=== PATIENT | female | born 1995 | race Caucasian/White ===

== ENCOUNTER 2019-10-22 16:04 | Outpatient (CLI) | payer OTHER, SELFPAY ==
--- NOTE | 2019-10-22 16:30 | USCV_ITS ---
Karely Dubon Age: 24 Gender: F : 1995 Exam Date: 10/22/2019 16:09 Ordering Phys: Miguel Matamoros MD ([email or web address]) Technologist: Sayra Mcgee Exam Location: [facility] Indication: /ARRYTHMIA BP: / HR: 97 Rhythm: Sinus Technical Quality: Adequate MEASUREMENTS (Male / Female) Normal Values 2D ECHO LV Diastolic Diameter PLAX 3.3 cm 4.2 - 5.9 / 3.9 - 5.3 cm LV Systolic Diameter PLAX 2.5 cm LV Chamber Size 3.1 cm IVS Diastolic Thickness 0.8 cm 0.6 - 1.0 / 0.6 - 0.9 cm IVS Systolic Thickness 0.9 cm LVPW Diastolic Thickness 1.0 cm 0.6 - 1.0 / 0.6 - 0.9 cm LVPW Systolic Thickness 0.9 cm RV Chamber Size 2.7 cm LVOT Diameter 2.0 cm LV Ejection Fraction 2D Teich 52.7 % LV Ejection Fraction MOD 2C 37.6 % LV Ejection Fraction 2C AL 36.3 % LA Diameter 2.1 cm LA Width 2.1 cm LA Height 2.5 cm RA Width 2.5 cm RA Height 2.6 cm Aorta at Sinotubular Diameter 2.3 cm M-MODE LV Diastolic Diameter MM 3.9 cm 4.2 - 5.9 / 3.9 - 5.3 cm LV Systolic Diameter MM 2.5 cm LV Ejection Fraction MM Teich 67.9 % IVS Diastolic Thickness MM 0.7 cm 0.6 - 1.0 / 0.6 - 0.9 cm IVS Systolic Thickness MM 1.1 cm LVPW Diastolic Thickness MM 0.8 cm 0.6 - 1.0 / 0.6 - 0.9 cm LVPW Systolic Thickness MM 1.0 cm RV Diastolic Diameter MM 1.1 cm Aortic Annulus Diameter 2.3 cm LA Ao Ratio MM 0.9 MV E Point Septal Separation 0.5 cm DOPPLER AV Peak Velocity 129.0 cm/s LVOT Peak Velocity 77.0 cm/s AV Area Cont Eq vti 2.0 cm squared AV Area Cont Eq pk 1.9 cm squared MV Area PHT 8.5 cm squared Mitral E to A Ratio 1.3 MV E' Velocity 95.0 cm/s Mitral E to LV E' Septal Ratio 8.8 TR Peak Velocity 167.1 cm/s TR Peak Gradient 11.2 mmHg TR Mean Velocity 135.0 cm/s TR Mean Gradient 7.6 mmHg TR Velocity Time Integral 40.5 cm TV Peak E Velocity 70.0 cm/s Right Atrial Pressure 3.0 mmHg Pulmonary Artery Systolic Pressu 14.2 mmHg PV Peak Velocity 77.0 cm/s QpQs Shunt Ratio 1.5 RV Acceleration Time 0.1 s RV Ejection Time 0.3 s RV AcT/ET 0.4 FINDINGS Left Ventricle Normal left ventricular cavity size. Normal left ventricular systolic function. No regional wall motion abnormalities. Left ventricular ejection fraction is estimated at 60 %. No regional wall motion abnormalities. Right Ventricle The right ventricle is normal in size and function. Right Atrium The right atrium is normal in size. Left Atrium The left atrium is normal in size. Mitral Valve Mildly thickened mitral valve. No mitral valve stenosis. Trace mitral valve regurgitation. Aortic Valve Structurally normal trileaflet aortic valve. No aortic valve stenosis. No aortic valve regurgitation. Tricuspid Valve Mild tricuspid valve regurgitation. Pulmonic Valve Structurally normal pulmonic valve without significant stenosis. There is no pulmonic regurgitation. Pericardium Normal pericardium without effusion. Aorta Normal ascending aorta dimension. CONCLUSIONS 1-Normal left ventricular cavity size. Normal left ventricular systolic function. No regional wall motion abnormalities. Left ventricular ejection fraction is estimated at 60 %. No regional wall motion abnormalities. 2-There is no pericardial effusion. 3-No significant valve abnormalities. 4-Pulmonary artery systolic pressure is within normal limits. 5-Right atrial pressure is around 5 mm of mercury. 6-There are no prior echocardiogram studies to compare. Miguel Matamoros MD (Electronically Signed) Final Date: 24 Oct 2019 17:15 S
== END 2019-10-22 16:05 | disposition home or self-care (01) ==
LOC: RAD 16:08
PROVIDERS: Visit Provider Internal Medicine Cardiovascular Disease
DX: I49.9 Cardiac arrhythmia, unspecified (principal)
CPT/HCPCS: 93306

== ENCOUNTER → 2019-10-30 16:19 | Outpatient (BNVA) | payer OTHER, SELFPAY | PROVIDERS: Visit Provider Nurse Practitioner Women's Health | DX: O09.899 Supervision of other high risk pregnancies, unspecified trimester (principal); Z3A.19 19 weeks gestation of pregnancy; R00.0 Tachycardia, unspecified | CPT/HCPCS: 80053; 80307; 84315; 85027; 86592; 86762; 86803; 86850; 86900; 87340; 87806 ==

== ENCOUNTER → 2019-11-14 11:12 | Outpatient (BNVA) | payer OTHER, SELFPAY | PROVIDERS: Visit Provider Obstetrics & Gynecology | DX: O99.340 Other mental disorders complicating pregnancy, unspecified trimester (principal); O99.321 Drug use complicating pregnancy, first trimester; Z3A.00 Weeks of gestation of pregnancy not specified | CPT/HCPCS: 80307; 84315 ==

== ENCOUNTER → 2019-11-15 08:15 | Outpatient (BNVA) | payer OTHER, SELFPAY | PROVIDERS: Visit Provider Obstetrics & Gynecology | DX: O99.340 Other mental disorders complicating pregnancy, unspecified trimester (principal); O09.892 Supervision of other high risk pregnancies, second trimester; O99.342 Other mental disorders complicating pregnancy, second trimester; O99.322 Drug use complicating pregnancy, second trimester; R63.6 Underweight; R00.0 Tachycardia, unspecified; O99.321 Drug use complicating pregnancy, first trimester; R82.5 Elevated urine levels of drugs, medicaments and biological substances; Z3A.00 Weeks of gestation of pregnancy not specified | CPT/HCPCS: 80307; 80349 ==

== ENCOUNTER → 2019-11-27 15:20 | Outpatient (BNVA) | payer OTHER, SELFPAY | PROVIDERS: Visit Provider Nurse Practitioner Women's Health | DX: O09.892 Supervision of other high risk pregnancies, second trimester (principal); O99.322 Drug use complicating pregnancy, second trimester; Z3A.00 Weeks of gestation of pregnancy not specified | CPT/HCPCS: 80307; 84315; 87491; 87591; 87661; 88175 ==

== ENCOUNTER → 2019-12-09 13:11 | Outpatient (BNVA) | payer OTHER, SELFPAY | PROVIDERS: Visit Provider Obstetrics & Gynecology | DX: Z34.92 Encounter for supervision of normal pregnancy, unspecified, second trimester (principal); Z3A.19 19 weeks gestation of pregnancy | CPT/HCPCS: 76805 ==

== ENCOUNTER → 2020-01-27 16:20 | Outpatient (BNVA) | payer OTHER, SELFPAY | PROVIDERS: Referring Provider Dermatology; Visit Provider Dermatology | DX: L81.8 Other specified disorders of pigmentation (principal); D22.9 Melanocytic nevi, unspecified | CPT/HCPCS: 99203 ==

== ENCOUNTER → 2020-02-11 10:25 | Outpatient (BNVA) | payer OTHER, SELFPAY | PROVIDERS: Visit Provider Nurse Practitioner Women's Health | DX: O09.892 Supervision of other high risk pregnancies, second trimester (principal); O99.322 Drug use complicating pregnancy, second trimester; R00.0 Tachycardia, unspecified; R63.6 Underweight; O99.342 Other mental disorders complicating pregnancy, second trimester; O47.9 False labor, unspecified | CPT/HCPCS: 80307; 82950; 83986; 84315; 85027 ==

== ENCOUNTER → 2020-02-19 08:10 | Outpatient (BNVA) | payer OTHER, SELFPAY | PROVIDERS: Visit Provider Obstetrics & Gynecology | DX: O99.019 Anemia complicating pregnancy, unspecified trimester (principal); R73.09 Other abnormal glucose | CPT/HCPCS: 82728; 82951; 82952; 83036; 83550 ==

== ENCOUNTER → 2020-03-05 13:07 | Outpatient (BNVA) | payer OTHER, SELFPAY | PROVIDERS: Visit Provider Obstetrics & Gynecology | DX: O99.013 Anemia complicating pregnancy, third trimester (principal) | CPT/HCPCS: 84315; 85027 ==

== ENCOUNTER 2020-03-13 08:56 | Outpatient (CLI) | payer OTHER, SELFPAY ==
[2020-03-13 11:06] LABS: Basophils % 0.1 %; Hematocrit 33.4 % (37.0-47.0); Hemoglobin 10.7 g/dL (11.5-15.3); Lymphocytes # 1.1 10^3/uL (0.8-4.8); Lymphocytes % 15.8 %; Mean Corpuscular Hemoglobin 31.5 pg (28.0-34.0); Mean Corpuscular Volume 98.2 fL (81-99); Mean Platelet Volume 9.9 fL (7.4-10.4); Monocytes # 0.4 10^3/uL (0.2-0.9); Monocytes % 5.5 %; Neutrophils # 5.61 10^3/uL (1.8-7.7); Neutrophils % 77.6 %; Nucleated Red Blood Cells % 0 %; Platelet Count 217 10^3/cmm (130-400); Red Cell Distribution Width 12.9 % (12.1-15.1); White Blood Count 7.2 10^3/uL (4.0-10.0)
[2020-03-13 11:49] LABS: Ferritin 35 ng/mL (15-150); Iron 128 ug/dL (37-145); Total Iron Binding Capacity 473 mcg/dl; Unsaturated Iron Binding 345 ug/dL (112-347)
[2020-03-13 11:54] LABS: Folate Level > 20.0 ng/mL (4.8-37.3)
[2020-03-13 12:06] LABS: Vitamin B12 250 pg/mL (232-1245)
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
== END 2020-03-13 08:57 | disposition home or self-care (01) ==
PROVIDERS: Referring Provider Internal Medicine Critical Care Medicine; Visit Provider Internal Medicine Medical Oncology
DX: O99.013 Anemia complicating pregnancy, third trimester (principal); D50.9 Iron deficiency anemia, unspecified; O26.893 Other specified pregnancy related conditions, third trimester; Z3A.00 Weeks of gestation of pregnancy not specified; R00.0 Tachycardia, unspecified; K21.9 Gastro-esophageal reflux disease without esophagitis; O99.340 Other mental disorders complicating pregnancy, unspecified trimester; F41.8 Other specified anxiety disorders; J68.9 Unspecified respiratory condition due to chemicals, gases, fumes and vapors; U07.0 Vaping-related disorder
CPT/HCPCS: 82607; 82728; 82746; 83540; 83550; 85025; 99204

== ENCOUNTER 2020-03-26 10:20 | Outpatient (CLI) | payer OTHER, SELFPAY ==
[2020-03-26 11:01] LABS: Basophils % 0.3 %; Hematocrit 31.4 % (37.0-47.0); Hemoglobin 10.3 g/dL (11.5-15.3); Lymphocytes # 1.2 10^3/uL (0.8-4.8); Lymphocytes % 16.1 %; Mean Corpuscular HGB Conc 32.8 g/dL (30.0-36.0); Mean Corpuscular Hemoglobin 31.7 pg (28.0-34.0); Mean Corpuscular Volume 96.6 fL (81-99); Mean Platelet Volume 9.8 fL (7.4-10.4); Monocytes # 0.5 10^3/uL (0.2-0.9); Monocytes % 6.5 %; Neutrophils # 5.72 10^3/uL (1.8-7.7); Neutrophils % 75.6 %; Nucleated Red Blood Cells % 0 %; Platelet Count 235 10^3/cmm (130-400); Red Blood Count 3.25 10^6/uL (4.1-5.3); Red Cell Distribution Width 12.9 % (12.1-15.1); White Blood Count 7.6 10^3/uL (4.0-10.0)
[2020-03-26 11:17] LABS: Ferritin 27 ng/mL (15-150); Homocysteine 7.57; Iron 85 ug/dL (37-145); Percent Saturation 17.5 % (20-50); Total Iron Binding Capacity 484 mcg/dl; Unsaturated Iron Binding 399 ug/dL (112-347)
--- NOTE | 2020-03-26 14:52 | ONC FU_ITS ---
Gaurav Zhu Patient Note Patient: Karely Dubon Unit #: [id number]: 1995 Dictated By: Joseph ChristopherDate of Visit: Mar 26, 2020 Onc MED TELEPHONE CONVERSATION Chief Complaint: IRON DEFICIENCY I spoke with Ms. Dubon today after reviewing her labs from earlier this morning. Her white count 7.6, hemoglobin 10.3, platelets 235,000 her iron saturation 17.5% which is down from 27% on March 13, 2020. Her ferritin is 27 down from 35 and her iron level is 85 down from 128 on March 13, 2020. She is currently taking iron 3 times a day orally. She states that she has. She states she is worn out, tired short of breath and is having significant cravings for water. She is also in her third with an estimated delivery date around 04/27/2020. I have requested that we go ahead and pursue Injectafer 2 doses for her given the fact that her hemoglobin is dropping and her iron sat has dropped 10 points in 2 weeks. She is not absorbing the oral iron. It is anticipated that she will discontinue to drop in her hemoglobin and iron saturation. I would like to pursue the Injectafer before she becomes any more symptomatic. We are planning to give her Injectafer tomorrow. She has no questions or concerns at this time. Signed By: Joseph Christopher-, CARO CENTERLeon Emmanuel MD <<Signature on File>>
[2020-03-31 17:08] LABS: Methylmalonic Acid 239 nmol/L (87-318)
== END 2020-03-26 10:21 | disposition home or self-care (01) ==
LOC: ONCMED 10:51
PROVIDERS: Visit Provider Nurse Practitioner
DX: D50.8 Other iron deficiency anemias (principal)
CPT/HCPCS: 36415; 82728; 83090; 83540; 83550; 83921; 85025

== ENCOUNTER 2020-03-27 09:43 | Outpatient (CLI) | payer OTHER, SELFPAY ==
[2020-03-27] MEDS: ferric carboxy (IVPB) 750 MG in sodium chloride 0.9% (100 ml) 100 ML 460 MG IV (10:41)
== END 2020-03-27 09:44 | disposition home or self-care (01) ==
LOC: ONCMED 09:47
PROVIDERS: Visit Provider Nurse Practitioner
DX: D50.8 Other iron deficiency anemias (principal)
CPT/HCPCS: 96365; J1439

== ENCOUNTER → 2020-04-01 11:06 | Outpatient (BNVA) | payer OTHER, SELFPAY | PROVIDERS: Visit Provider Obstetrics & Gynecology | DX: O09.893 Supervision of other high risk pregnancies, third trimester (principal) | CPT/HCPCS: 84315; 87081 ==

== ENCOUNTER 2020-04-03 05:56 | Outpatient (CLI) | payer OTHER, SELFPAY ==
[2020-04-03] MEDS: ferric carboxy (IVPB) 750 MG in sodium chloride 0.9% (100 ml) 100 ML 460 MG IV (10:15)
== END 2020-04-03 05:57 | disposition home or self-care (01) ==
LOC: ONCMED 05:56
PROVIDERS: Visit Provider Internal Medicine Medical Oncology
DX: D50.9 Iron deficiency anemia, unspecified (principal)
CPT/HCPCS: 96365; J1439

== ENCOUNTER → 2020-04-09 13:31 | Outpatient (BNVA) | payer OTHER, SELFPAY | PROVIDERS: Visit Provider Obstetrics & Gynecology | DX: O09.893 Supervision of other high risk pregnancies, third trimester (principal); O99.322 Drug use complicating pregnancy, second trimester; Z34.90 Encounter for supervision of normal pregnancy, unspecified, unspecified trimester | CPT/HCPCS: 80307; 84315 ==

== ENCOUNTER 2020-04-16 03:00 | Inpatient (IN) | payer OTHER, SELFPAY ==
[2020-04-16] VITALS (37 sets, daily range): BP systolic 0–137; BP diastolic 0–83; PULSE 64–122; RESP 16–18; TEMP 36.4–36.9; O2SAT 96–100
--- NOTE | 2020-04-16 02:38 | ECG_ITS ---
[facility] Test Date: 2020-04-16 Pat Name: Karely Dubon Department: Room: LDR 3 Gender: Female Payroll Services Analyst: : 1995 Requested By: Tim Paez Order Number: [id number] Price MD: TIFFANIE BALDERAS Measurements Intervals [place] Rate: 60 P: 14 MO: 138 QRS: 11 QRSD: 90 T: 39 QT: 389 QTc: 390 Interpretive Statements SINUS RHYTHM INTERPRETATION BASED ON A DEFAULT AGE OF 40 YEARS No previous ECG available for comparison Electronically Signed On 04-16-2020 21:04:51 CDT by TIFFANIE BALDERAS [id number]
[2020-04-16 03:12] LABS: Basophils % 0.2 %; Hematocrit 36.1 % (37.0-47.0); Hemoglobin 11.8 g/dL (11.5-15.3); Lymphocytes # 1.7 10^3/uL (0.8-4.8); Lymphocytes % 18.8 %; Mean Corpuscular HGB Conc 32.7 g/dL (30.0-36.0); Mean Corpuscular Hemoglobin 32.2 pg (28.0-34.0); Mean Corpuscular Volume 98.4 fL (81-99); Mean Platelet Volume 10.4 fL (7.4-10.4); Monocytes # 0.6 10^3/uL (0.2-0.9); Monocytes % 6.4 %; Neutrophils # 6.71 10^3/uL (1.8-7.7); Nucleated Red Blood Cells % 0 %; Platelet Count 227 10^3/cmm (130-400); Red Blood Count 3.67 10^6/uL (4.1-5.3); Red Cell Distribution Width 13.8 % (12.1-15.1); White Blood Count 9.2 10^3/uL (4.0-10.0)
[2020-04-16] MEDS: ondansetron 2 mg/ML SDV 2 mL 4 MG IVP (03:16)
[2020-04-16] MEDS: lactated ringers 1,000 ML 999 ML IV (03:16)
[2020-04-16 03:26] LABS: Amphetamines Screen Urine Negative (Negative); Barbiturates Screen Urine Negative (Negative); Benzodiazepines Screen Urine Negative (Negative); Cocaine Screen Urine Negative (Negative); Opiate Screen Urine Negative (Negative); PCP Screen Urine Negative (Negative); THC Screen Urine Positive (Negative)
[2020-04-16] MEDS: oxytocin 30 UNIT/500 ML BAG 600 UNIT IV (03:47)
--- NOTE | 2020-04-16 03:52 | PM.DELIVERY ---
Delivery Note: Date of delivery: April 16, 2020 Pre-delivery diagnoses: Term . maternal tachycardia. Anemia Affecting . underweight. Intrauterine growth restriction. Drug use in . Post-delivery diagnoses: as above term delivered Procedure: spontaneous vaginal delivery Op report anesthesia: None Delivering Physician: Tim Lowe M.D. Estimated blood loss (mL): 300 Findings: baby girl, 88 weight 2880 g Pre-Delivery Course: 24 year old, 4, Para 2-0-1-2 with LMP of 11/06/2019 and an MAU of 04/27/2020 based on 15 week ultrasound, placing her at 38 3/7 weeks today. Who has been receiving care from [facility]. She has been experiencing painful uterine contractions for the past 4 hours. The contractions are occurring at 4 minute intervals with approximately 30 second duration. She continues to feel movement between the contractions. She denied vaginal bleeding but refers 0100 she rupture of membranes with meconium. She arrived to labor and delivery with cervical dilation of 5-6 cm, 95% effacement at 0 station. She was noticed to have late decelerations. Intrauterine resuscitation was started immediately. She progressed very fast to have a spontaneous vaginal delivery. She arrived to labor and delivery at 0202 and delivered the at 333. CC: Onset of labor at term. HPI: Received appropriate care. Daily vitamins since started care. labs have all been normal, except for anemia, or wheeze the patient have received iron infusion. complicated by, maternal tachyarrhythmias, drug abuse during major depressive disorder, anemia in and intrauterine growth restriction. She was found to negative for Group B Strep from screening at 36 weeks. She has gained approximately 21 lbs throughout the . She denies a history of HTN during . Glucose tolerance screening for gestational diabetes 1 hour was abnormal but the three-hour glucose tolerance test was negative. Delivery: The patient was noted to be complete and pushing, so was placed in the dorsal lithotomy position, prepped and draped in the usual sterile fashion for a vaginal delivery. Pt. Noted to have no anesthesia. At 0334 the patient delivered a viable at 38 weeks +3 days female infant weighing 2880 g with scores of 8 and 8 at one and five minutes, respectively. The vertex was delivered spontaneously over intact perineum. The patient was asked to push and the head delivered spontaneously in the GODFREY position, over an intact perineum. A nuchal cord was checked and none noted. The anterior shoulder delivered easily and the posterior shoulder followed. The remainder of the infant was easily delivered and the oropharynx and nasopharynx was bulb suctioned. The infant was noted to have spontaneous cry and spontaneous movement of all four extremities. The cord was clamped x 2 and cut and noted to have 2 arteries and one vein. The infant was passed to the warmer where nursing and peds computer information systems professor provider personnel were in attendance. The placenta delivered intact by manual extraction and the uterus was explored. 20 units of Pitocin was placed in the IV bag to firm the uterus. Examination of the cervix and vaginal vault did not reveal any lacerations. A vaginal pack was then placed. Examination of the perineum showed no lacerations noted. The vaginal pack was then removed. The patient tolerated this procedure well, and recovered in L&D with her taken to the OB [place]. All sponge and needle counts were correct. Post-Delivery Status: good and stable A&P Assessment and plan (1) Term delivered: Status: Acute (2) Uterine size date discrepancy: Status: Acute Qualifiers: Trimester: third trimester Qualified Code(s): O26.843 - Uterine size-date discrepancy, third trimester (3) Anemia affecting : Status: Acute Qualifiers: Trimester: third trimester Qualified Code(s): O99.013 - Anemia complicating , third trimester (4) Major depressive disorder: Status: Acute (5) Drug use complicating : Status: Acute Qualifiers: Trimester: third trimester Qualified Code(s): O99.323 - Drug use complicating , third trimester (6) Tachyarrhythmia: Status: Acute Coding Level of Care Code Acute Assistant District Attorney for Chg Fwd Diagnoses Term delivered O80 Uterine size date discrepancy O26.843 Trimester: third trimester Anemia affecting O99.013 Trimester: third trimester Major depressive disorder F32.9 Drug use complicating O99.323 Trimester: third trimester Tachyarrhythmia R00.0
[2020-04-16] MEDS: HYDROcodone-acetaminophen 5-325 mg Tablet PO ×3 (05:26→19:20)
[2020-04-16] MEDS: benzocaine-menthol 78 gm Canister 1 SPRAY TOPICAL ×2 (05:27→22:58)
[2020-04-16] MEDS: lanolin oint 7 gm 1 APPLIC TOPICAL (05:27)
--- NOTE | 2020-04-16 05:46 | PC.NURSE ---
AT 0508 PT AMBULATED TO ROOM. MACHINE SPECIALIST PROVIDED STANDBY ASSISTANCE, PT TOLERATED AMBULATION WELL.
[2020-04-16] MEDS: ibuprofen 800 mg tablet PO ×3 (09:05→20:46)
[2020-04-16] MEDS: docusate sodium 100 mg Capsule PO ×2 (09:05→19:20)
[2020-04-16] MEDS: prenatal vitamin Capsule 1 CAP PO (09:05)
[2020-04-16 17:03] LABS: Hematocrit 31.5 % (37.0-47.0); Hemoglobin 10.3 g/dL (11.5-15.3); Mean Corpuscular HGB Conc 32.7 g/dL (30.0-36.0); Mean Corpuscular Hemoglobin 32.2 pg (28.0-34.0); Mean Corpuscular Volume 98.4 fL (81-99); Mean Platelet Volume 10.3 fL (7.4-10.4); Platelet Count 194 10^3/cmm (130-400); Red Cell Distribution Width 13.8 % (12.1-15.1); White Blood Count 9.9 10^3/uL (4.0-10.0)
[2020-04-17 04:40] VITALS: BP 110/64; PULSE 79; RESP 18; TEMP 36.6; O2SAT 97
[2020-04-17] MEDS: prenatal vitamin Capsule 1 CAP PO (09:04)
[2020-04-17] MEDS: docusate sodium 100 mg Capsule PO ×2 (09:04→18:25)
[2020-04-17] MEDS: ibuprofen 800 mg tablet PO ×2 (09:04→16:05)
[2020-04-17 10:12] VITALS: BP 101/68; PULSE 78; RESP 15
[2020-04-17 14:05] LABS: Coronavirus Lab Test PTC Negative
[2020-04-17 15:25] VITALS: BP 104/68; PULSE 80; RESP 16; TEMP 37
--- NOTE | 2020-04-17 18:24 | P.DS_ITS ---
Discharge Providers CLOTH LAMINATING SUPERVISOR Date of Admission: 04/16/20 03:00 Date of Discharge: 04/17/20 Attending Provider at Admission: Terry Walters MD Attending Provider at Discharge: Tim Lowe MD Diagnoses at Discharge Discharge Diagnosis (1) Uterine size date discrepancy: Status: Acute Qualifiers: Trimester: third trimester Qualified Code(s): O26.843 - Uterine size- date discrepancy, third trimester (2) Anemia affecting : Status: Acute Qualifiers: Trimester: third trimester Qualified Code(s): O99.013 - Anemia complicating , third trimester (3) Major depressive disorder: Status: Acute (4) Drug use complicating : Status: Acute Qualifiers: Trimester: third trimester Qualified Code(s): O99.323 - Drug use complicating , third trimester (5) Tachyarrhythmia: Status: Acute (6) Term delivered: Status: Acute Reason for Visit Reason for Visit: possible [facility]OM Hospital Course Hospital Course: 24 year old, 4, Para 2-0-1-2 with LMP of 11/06/2019 and an MAU of 04/27/2020 based on 15 week ultrasound, placing her at 38 3/7 weeks today. Who has been receiving care from [facility]. She has been experiencing painful uterine contractions for the past 4 hours. The contractions are occurring at 4 minute intervals with approximately 30 second duration. She continues to feel movement between the contractions. She denied vaginal bleeding but refers 0100 she rupture of membranes with meconium. She arrived to labor and delivery with cervical dilation of 5-6 cm, 95% effacement at 0 station. She was noticed to have late decelerations. Intrauterine resuscitation was started immediately. She progressed very fast to have a spontaneous vaginal delivery. She arrived to labor and delivery at 0202 and delivered the infant at 0334. She delivershe delivered baby girl, 8/8 weight 2880 g. she is afebrile hemodynamically stable tolerating fluids well ambulating without difficulty She is a febrile hemodynamically stable tolerating fluid well ambulating without difficulty. She is breast-feeding. She is breast-feeding. She has not decided which method of contraception to use yet and refers she will make up her mind by the times she comes in for her 6-week visit. Information Peripartum Data: Infant Delivery Method: Vaginal Physical Exam Narrative: EXAM NARRATIVE: Vaginal BXGA; alert and oriented x 3 HEENT: normal Breasts: engorged Nipples - skin intact Lungs; clear to auscultation Heart: regular rhythm, no murmurs. Abd: Appropriately tender. BS+. Uterine fundus below umbilicus. No Fundal Tenderness. Perineum: normal lochia. Extremities: no edema, no cyanosis, no tenderness. Discharge Data Data Completed and Pending: Pending at discharge Category Date Time Status Pathology: Surgic al [PTH] Routine Pth 04/16/20 03:47 Received Labs from last 24 hours 04/16/20 06:05 Nasal/Oral COVID-1 9 PCR Negative Vitals: Last Vital Signs Temp 98.6 F 04/17/20 15:25 Pulse 80 04/17/20 15:25 Resp 16 04/17/20 15:25 BP 104/68 04/17/20 15:25 Pulse Ox 97 04/17/20 04:40 Discharge Plan Discharge Patient Disposition: Home Condition: Stable Prescriptions: New ferrous sulfate [Iron (ferrous sulfate)] 325 mg (65 mg iron) tablet 325 mg PO BID Qty: 60 RF: 0 acetaminophen 325 mg capsule 325 mg PO Q4H PRN (Reason: fever or pain) Qty: 60 RF: 0 ibuprofen 800 mg tablet 800 mg PO TID PRN (Reason: pain) Qty: 60 RF: 0 Continued Classic 28 mg iron- 800 mcg tablet 1 tab PO DAILY Qty: 30 RF: 8 buspirone 10 mg tablet 10 mg PO TID PRN (Reason: anxiety or sleep) 30 Days Qty: 90 RF: 2 citalopram 20 mg tablet 20 mg PO DAILY 30 Days Qty: 30 RF: 2 metoprolol tartrate 25 mg tablet 12.5 mg PO BID Qty: 30 RF: 3 ferrous sulfate 325 mg (65 mg iron) tablet 325 mg PO BID Qty: 60 RF: 6 budesonide-formoterol [Symbicort] 160-4.5 mcg/actuation HFA aerosol inhaler 2 puff INHALATION BID Qty: 10.2 RF: 3 hydroxyzine HCl 25 mg tablet 25 mg PO QID PRN (Reason: Sleep) RF: 0 Discharge Orders: Discharge Order (Routine); Ordered 04/17/20 Ordered By: Tim Lowe Referrals: Tim Lowe MD [Physician] - 6 Weeks Discharge Diet: Regular Discharge Activity: Increase activity as tolerated Patient Instructions: Bleeding (DC), OB Discharge Report, OB Food/Drug Interaction Guide, OB Home Care, OB Proud Parent Packet, OB Vaginal Deliveries - [facility] Discharge Attestations CLOTH LAMINATING SUPERVISOR Time Spent in Discharge Care*: greater than 30 min Coding Level of Care Code Acute Gauge Checker for Chg Fwd Diagnoses Uterine size date discrepancy O26.843 Trimester: third trimester Anemia affecting O99.013 Trimester: third trimester Major depressive disorder F32.9 Drug use complicating O99.323 Trimester: third trimester Tachyarrhythmia R00.0 Term delivered O80
--- NOTE | 2020-04-17 18:27 | PC.NURSE ---
Patient received her home medications from the medication lock box including: Buspar 10 mg Citalopram 20 mg metoprolol 25 mg. Patient had no questions at this time.
[2020-04-17 18:44] VITALS: BP 110/73; PULSE 93; RESP 16; TEMP 36.8
== END 2020-04-17 19:18 | disposition home or self-care (01) | DRG 806 ==
LOC: OBGYN 05:57 → OPOB 07:38
PROVIDERS: Admitting Provider Family Medicine; Family Provider Family Medicine; Visit Provider Obstetrics & Gynecology
DX: O99.02 Anemia complicating childbirth (principal); O99.324 Drug use complicating childbirth; Z37.0 Single live birth; O36.5930 Maternal care for other known or suspected poor fetal growth, third trimester, not applicable or unspecified; F32.9 Major depressive disorder, single episode, unspecified; O99.344 Other mental disorders complicating childbirth; D64.9 Anemia, unspecified; F12.90 Cannabis use, unspecified, uncomplicated; F41.1 Generalized anxiety disorder; Z3A.38 38 weeks gestation of pregnancy; O75.89 Other specified complications of labor and delivery; J45.909 Unspecified asthma, uncomplicated; K58.9 Irritable bowel syndrome, unspecified; Z87.891 Personal history of nicotine dependence; R00.0 Tachycardia, unspecified
CPT/HCPCS: 12345; 36415; 59025; 59409; 80306; 83986; 85025; 85027; 87635; 88307; 93005; 96375; 98960; 99211; J2405

== ENCOUNTER → 2020-08-21 14:30 | Outpatient (BNVA) | payer OTHER, SELFPAY | PROVIDERS: Visit Provider Obstetrics & Gynecology | DX: Z30.017 Encounter for initial prescription of implantable subdermal contraceptive (principal) | CPT/HCPCS: 81025 ==

== ENCOUNTER 2023-06-05 14:08 | Emergency (ER) | payer OTHER, SELFPAY ==
[2023-06-05 14:34] VITALS: BP 106/74; PULSE 99; RESP 16; TEMP 36.6; O2SAT 100; BMI 17.4
--- NOTE | 2023-06-05 14:55 | CTR_ITS ---
PROCEDURE INFORMATION: Exam: CT Abdomen And Pelvis With Contrast Exam date and time: 06/05/2023 5:18 PM Age: 27 years old Clinical indication: Abdominal pain; Generalized; Prior surgery; Surgery date: 6+ months; Surgery type: Bowel resection; Patient HX: HX of intussuseption as a baby TECHNIQUE: Imaging protocol: Computed tomography of the abdomen and pelvis with contrast. Radiation optimization: All CT scans at this facility use at least one of these dose optimization techniques: automated exposure control; mA and/or kV adjustment per patient size (includes targeted exams where dose is matched to clinical indication); or iterative reconstruction. Contrast material: OMNI 350; Contrast volume: 80 ml; Contrast route: INTRAVENOUS (IV); REPORTING DATA: Count of CT and Cardiac NM exams in prior 12 months: This patient has received 0 known CTs and 0 known cardiac nuclear medicine studies in the 12 months prior to the current study. COMPARISON: OB follow up [facility] 04/13/2020 11:02 AM RADIATION DOSE METRICS: Total DLP (mGy-cm): 318.99 FINDINGS: Liver: Normal. No mass. Gallbladder and bile ducts: Normal. No calcified stones. No ductal dilation. Pancreas: Normal. No ductal dilation. Spleen: Normal. No splenomegaly. Adrenal glands: Normal. No mass. Kidneys and ureters: Normal. No hydronephrosis. Stomach and bowel: Unremarkable. No obstruction. No mucosal thickening. Appendix: No evidence of appendicitis. Intraperitoneal space: Unremarkable. No free air. No significant fluid collection. Vasculature: Unremarkable. No abdominal aortic aneurysm. Lymph nodes: Unremarkable. No enlarged lymph nodes. Urinary bladder: Unremarkable as visualized. Reproductive: Unremarkable as visualized. Bones/joints: No acute fracture. Soft tissues: Unremarkable. CT/CT abdomen pelvis w con* [id number] IMPRESSION: No acute findings.
--- NOTE | 2023-06-05 14:55 | W.ED.ABDPA2 ---
Documented by User: GEOVANNI Hernandez 06/05/23 16:59 HPI - Abdominal Pain General: Chief Complaint: Abdominal Pain Stated Complaint: NV Time Seen by Provider: 06/05/23 14:24 Source: patient Mode of arrival: wheelchair Limitations: no limitations History of Present Illness: Patient is a 27-year-old female with an extensive past medical history given her young age including partial bowel resection for intussusception at age 18 months, chronic abdominal pain, gastritis, GERD, irritable bowel syndrome, severe anxiety, vaping induced lung injury, depression, POTS here for complaints of abdominal pains reporting her abdomen is knotting up as well as reporting that she needs fluids. She reportedly is on three different stomach medications for her gastritis/GERD. She states she has lost quite a bit of weight since Thanksgiving secondary to her abdominal pain and lack of eating. Patient states at one point was told she had elevated liver enzymes and hepatomegaly was found on an ultrasound years ago. She is very anxious in regards to this stating she never followed up. 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 When I mention an IV she immediately asks if she can take her prescribed Ativan. MD elicited complaint: abdominal pain Onset (ago): day(s) Pain Consistency: constant Location: Diffuse and Epigastric Severity: severe Quality: cramping and sharp Radiation: none Migration to: no migration Relieving factors: nothing Associated Symptoms: Reports GI cramping and heartburn; Denies change in bowel habits, chills, dysuria, fever(s), hematemesis, nausea and vomiting Related Data: Patient : No Review of Systems Const: Denies: fever(s), chills, body aches, fatigue or malaise ENMT: Denies: throat pain or odynophagia Card: Reports: pre-syncope (reports this is chronic related to her POTS); Denies: chest pain, palpitations, edema, dyspnea on exertion, orthopnea, leg pain with exertion or acrocyanosis Resp: Denies: dyspnea, productive cough, non-productive cough, wheezing, hemoptysis or chest congestion GI: Reports: abdominal pain, heartburn and GI cramping; Denies: nausea, vomiting, hematemesis or change in bowel habits : Denies: flank pain, difficulty voiding, dysuria, urinary frequency, urinary urgency, urinary hesitancy, vaginal odor, vaginal bleeding or pelvic pain Musc: Denies: neck pain, back pain, extremity pain, extremity swelling, joint pain or joint swelling Skin/Breast: Denies: rash Neuro: Denies: headache(s), numbness in extremities, weakness in extremities, sensory changes or dizziness PFS ED PFSH: Medical History (Updated 06/05/23 @ 18:37 by GEOVANNI Monk) Bronchiolitis obliterans depression Major depressive disorder Generalized anxiety disorder Asthma IBS (irritable bowel syndrome) more diarrhea---- she has followed a semi gluten free diet which has helped her symptoms. Surgical History History of bowel resection (01/1995) Treatment of intussusception at 18 months old. Family History Denies family history of Diabetes Clotting disorder Cancer Hypertension Stroke Social History Smoking and tobacco/nicotine status: former use of tobacco/nicotine Alcohol intake: never Substance/Drug Use: never Do you think of yourself as: Straight/Heterosexual Physical Exam Const: COMMON NORMALS: patient oriented x3, no limitations and alert GENERAL APPEARANCE: cooperative, in distress (severe anxiety) and anxious NUTRITIONAL APPEARANCE: thin and underweight ORIENTATION/CONSCIOUSNESS: Yes awake, Yes oriented to person, Yes oriented to place and Yes oriented to time HENMT: COMMON NORMALS: normocephalic and atraumatic HEAD & SCALP: normal to inspection, normocephalic and atraumatic Eye: GENERAL EYE: appearance normal, both eyes and all related structures Neck/C-Spine: COMMON NORMALS: full ROM, no lymphadenopathy, supple and no meningeal signs Chest: COMMONS NORMALS: normal inspection of the chest Resp: COMMON NORMALS: normal respiratory effort and clear to auscultation bilaterally AUSCULTATION: clear to auscultation bilaterally Cardio: COMMON NORMALS: regular rate and regular rhythm RATE: regular rate RHYTHM: regular rhythm GI: COMMON NORMALS: Normal to inspection, nondistended, normoactive bowel sounds present, Soft to palpation, No hepatosplenomegaly present and no masses INSPECTION: Yes normal to inspection AUSCULTATION: Yes normoactive bowel sounds PALPATION: Yes Soft to palpation, Yes Tenderness to palpation present (GI) (throughout upper abdomen), No Guarding due to palpation present (GI), No Rigid due to palpation and Yes No hepatosplenomegaly present : COMMON NORMALS: Yes no CVA tenderness BLADDER/KIDNEY EXAM: Yes no CVA tenderness Back/Pelvis: COMMON NORMALS: no CVA tenderness and thoracic and lumbar spine normal to inspection Extremity: COMMON NORMALS: normal to inspection GENERAL: Yes normal exam except as noted Neuro: DEX COMA SCALE: document GCS findings [place] coma scale eye opening: Spontaneous Dex coma scale verbal response: Orientated [place] coma scale motor response: Obey commands [place] coma scale total score: 15 COMMON NORMALS: patient oriented x3, moves all extremities, no focal motor deficits and no sensory deficits noted SENSORIUM/ORIENTATION: Yes alert, Yes oriented to person, Yes oriented to place and Yes oriented to time MENINGEAL SIGNS: Yes no meningeal signs Skin: COMMON NORMALS: no rashes or lesions noted GENERAL SKIN EXAM: no rashes or lesions noted Course Vital Signs: Vital signs: Vital Signs Temperature 97.9 F 06/05/23 14:34 Pulse Rate 97 06/05/23 18:32 Respiratory Rate 94 H 06/05/23 15:41 Blood Pressure 111/80 06/05/23 18:32 Pulse Oximetry 100 06/05/23 18:32 Oxygen Delivery Me thod Room Air 06/05/23 15:41 MDM - Abdominal Pain Lab Data 06/05/23 15:08 06/05/23 16:02 Labs/Radiology: Radiology Impressions Abdomen/Pelvis CT 06/05/23 14:55 IMPRESSION: No acute findings. Laboratory Results WBC 5.24 10^3/uL (3.29-11.43) 06/05/23 15:08 RBC 5.20 10^6/uL (3.85-5.65) 06/05/23 15:08 Hgb 15.40 g/dL (11.27-16.99) 06/05/23 15:08 Hct 46.9 % (36-47) 06/05/23 15:08 MCV 90.2 fl (85-98) 06/05/23 15:08 MCH 29.6 pg (27-33) 06/05/23 15:08 MCHC 32.8 g/dL (30-55) 06/05/23 15:08 RDW 12.5 % (12.1-15.1) 06/05/23 15:08 Plt Count 315 10^3/cmm (157-399) 06/05/23 15:08 MPV 10.4 fL (7.4-10.4) 06/05/23 15:08 Neut % (Auto) 67.3 % 06/05/23 15:08 Lymph % (Auto) 24.6 % 06/05/23 15:08 [place] % (Auto) 6.7 % 06/05/23 15:08 Eos % (Auto) 0.6 % 06/05/23 15:08 Baso % (Auto) 0.6 % 06/05/23 15:08 Neut # (Auto) 3.53 10^3/uL (1.8-7.7) 06/05/23 15:08 Lymph # (Auto) 1.3 10^3/uL (0.8-4.8) 06/05/23 15:08 [place] # (Auto) 0.4 10^3/uL (0.2-0.9) 06/05/23 15:08 Eos # (Auto) 0.0 10^3/uL (0.0-0.8) 06/05/23 15:08 Baso # (Auto) 0.0 10^3/uL (0.0-0.1) 06/05/23 15:08 Nucleated RBC % (auto) 0 % 06/05/23 15:08 Nucleated RBCs # 0.0 /100WBC 06/05/23 15:08 Sodium 143 mmol/L (136-145) 06/05/23 16:02 Potassium 3.6 mmol/L (3.5-5.1) 06/05/23 16:02 Chloride 104 mmol/L (98-107) 06/05/23 16:02 Carbon Dioxide 28 mmol/L (22-29) 06/05/23 16:02 Anion Gap 14.6 (5-19) 06/05/23 16:02 BUN 8 mg/dL (6-20) 06/05/23 16:02 Creatinine 0.7 mg/dL (0.5-0.9) 06/05/23 16:02 GFR Calculation 98.9 mL/min (90-130) 06/05/23 16:02 Glucose 100 mg/dL (65-115) 06/05/23 16:02 Calculated Osmolality 294 mOsm/kg (285-295) 06/05/23 16:02 Calcium 9.9 mg/dL (8.5-10.5) 06/05/23 16:02 Total Bilirubin 1.0 mg/dL (0.15-1.2) 06/05/23 16:02 AST 27 U/L (0-32) 06/05/23 16:02 ALT 15 U/L (0-33) 06/05/23 16:02 Alkaline Phosphatase 63 U/L (35-105) 06/05/23 16:02 Total Protein 7.4 g/dL (6.6-8.7) 06/05/23 16:02 Albumin 5.2 g/dL (3.5-5.2) 06/05/23 16:02 Globulin 2.2 g/dL (1.3-4.6) 06/05/23 16:02 Lipase 33 U/L (13-60) 06/05/23 16:02 HCG, Qual Negative (Negative) 06/05/23 16:02 Urine Color Dark yellow (Yellow) 06/05/23 15:09 Urine Appearance Clear (CLEAR) 06/05/23 15:09 Urine pH 6.5 (5-7) 06/05/23 15:09 Ur Specific [place] 1.015 (1.005-1.030) 06/05/23 15:09 Urine Protein Neg (Negative) 06/05/23 15:09 Urine Glucose (UA) Norm (Normal) 06/05/23 15:09 Urine Ketones Negative (Negative) 06/05/23 15:09 Urine Blood Neg (Negative) 06/05/23 15:09 Urine Nitrate Negative (Negative) 06/05/23 15:09 Urine Bilirubin Neg (Negative) 06/05/23 15:09 Urine Urobilinogen Norm mg/dL (Negative) 06/05/23 15:09 Ur Leukocyte Esterase Negative (Negative) 06/05/23 15:09 Discharge Plan Discharge Patient Disposition: Home Clinical Impression: Abdominal pain Condition: Stable Prescriptions: New dicyclomine 10 mg capsule 10 mg PO TID Qty: 14 0RF No Action Classic 28 mg iron- 800 mcg tablet 1 tab PO DAILY Qty: 30 8RF cyclobenzaprine 10 mg tablet 10 mg PO BID dextroamphetamine-amphetamine 10 mg tablet 10 mg PO BID ondansetron 8 mg tablet,disintegrating 8 mg PO Q6H PRN (Reason: Nausea And Vomiting) Synthroid 25 mcg tablet 25 mcg PO DAILY pantoprazole 40 mg tablet,delayed release (DR/EC) 40 mg PO DAILY lorazepam 1 mg tablet 1 mg PO BID bupropion HCl 150 mg tablet extended release 24 hr 150 mg PO DAILY Discharge Orders: Discharge ED (Routine); Ordered 06/05/23 Ordered By: Sun Grant Discharge Diet: Advance as tolerated Discharge Activity: Resume usual activity Patient Instructions: Abdominal Pain (ED) Activity Restrictions/Additional Instructions: Lab work today shows no signs of infection. Your electrolytes are within normal limits at this time as well as your kidney function. The CT examination of your abdomen today revealed no signs of any acute enlargement in your liver or other acute concerns for your worsening abdominal pains. I am providing you a prescription for dicyclomine. We did send it over to [facility] as this prescription should be less than $20 there. I have also placed the GI referral on your behalf to see if further evaluation can be done while you are here in town visiting. Continue taking your prescription medications as recommended by your doctor back home. Sign Out Sign Out Data: Patient Sign Out occurred on 06/05/23 at 17:06. Patient's care was discussed, and care was transferred from GEOVANNI Hernandez to GEOVANNI Monk. Coding Level of Care Code ED Source Inspector for Chg Fwd Documented by User: GEOVANNI Monk 06/05/23 21:31 HPI - Abdominal Pain General: Chief Complaint: Abdominal Pain Stated Complaint: NV Time Seen by Provider: 06/05/23 14:24 PFSH ED PFSH: Medical History (Updated 06/05/23 @ 18:37 by GEOVANNI Monk) Bronchiolitis obliterans depression Major depressive disorder Generalized anxiety disorder Asthma IBS (irritable bowel syndrome) more diarrhea---- she has followed a semi gluten free diet which has helped her symptoms. Surgical History History of bowel resection (01/1995) Treatment of intussusception at 18 months old. Family History Denies family history of Diabetes Clotting disorder Cancer Hypertension Stroke Social History Smoking and tobacco/nicotine status: former use of tobacco/nicotine Alcohol intake: never Substance/Drug Use: never Do you think of yourself as: Straight/Heterosexual Physical Exam Neuro: DEX COMA SCALE: document GCS findings Dex coma scale total score: 15 Course Vital Signs: Vital signs: Vital Signs Temperature 97.9 F 06/05/23 14:34 Pulse Rate 97 06/05/23 18:32 Respiratory Rate 94 H 06/05/23 15:41 Blood Pressure 111/80 06/05/23 18:32 Pulse Oximetry 100 06/05/23 18:32 Oxygen Delivery Me thod Room Air 06/05/23 15:41 MDM - Abdominal Pain Medical Decision Making Sun Grant PA-C: Transfer care from Giana Sharma PA-C at 1700. I was notified the patient's lab work is completely unremarkable and that we are waiting on imaging results. Imaging results came back completely normal. I went to go speak with the patient regarding negative lab work and imaging findings. I spent no less than 30 minutes at bedside with patient continuing to provide significant amount of prior history covering multiple body systems and multiple specialists, procedures, and medications. Patient again speaks of this knotting in her stomach and wants to know why this is happening. She states she always has abnormal electrolytes and an enlarged liver/elevated LFTs. I explained to her that there is nothing in her evaluation today which would show anything acutely concerning. Patient has multiple medications at home for stomach complaints but will try Bentyl while she is here in town. Patient is here for about 3 weeks. She states that this discomfort is unlike anything she is ever had and wants to be seen for follow-up here while she is in town. I did place a referral for follow-up if she is able to get in and seen but, would not be surprised if any other interventions or treatments are deferred to her specialist back in [place]. Differential Diagnosis Likely abdominal pain; Unlikely acute appendicitis, calculus of kidney, constipation, diverticulitis, endometriosis, gastroenteritis or pancreatitis Lab Data 06/05/23 15:08 06/05/23 16:02 Labs/Radiology: Radiology Impressions Abdomen/Pelvis CT 06/05/23 14:55 IMPRESSION: No acute findings. Laboratory Results WBC 5.24 10^3/uL (3.29-11.43) 06/05/23 15:08 RBC 5.20 10^6/uL (3.85-5.65) 06/05/23 15:08 Hgb 15.40 g/dL (11.27-16.99) 06/05/23 15:08 Hct 46.9 % (36-47) 06/05/23 15:08 MCV 90.2 fl (85-98) 06/05/23 15:08 MCH 29.6 pg (27-33) 06/05/23 15:08 MCHC 32.8 g/dL (30-55) 06/05/23 15:08 RDW 12.5 % (12.1-15.1) 06/05/23 15:08 Plt Count 315 10^3/cmm (157-399) 06/05/23 15:08 MPV 10.4 fL (7.4-10.4) 06/05/23 15:08 Neut % (Auto) 67.3 % 06/05/23 15:08 Lymph % (Auto) 24.6 % 06/05/23 15:08 [place] % (Auto) 6.7 % 06/05/23 15:08 Eos % (Auto) 0.6 % 06/05/23 15:08 Baso % (Auto) 0.6 % 06/05/23 15:08 Neut # (Auto) 3.53 10^3/uL (1.8-7.7) 06/05/23 15:08 Lymph # (Auto) 1.3 10^3/uL (0.8-4.8) 06/05/23 15:08 [place] # (Auto) 0.4 10^3/uL (0.2-0.9) 06/05/23 15:08 Eos # (Auto) 0.0 10^3/uL (0.0-0.8) 06/05/23 15:08 Baso # (Auto) 0.0 10^3/uL (0.0-0.1) 06/05/23 15:08 Nucleated RBC % (auto) 0 % 06/05/23 15:08 Nucleated RBCs # 0.0 /100WBC 06/05/23 15:08 Sodium 143 mmol/L (136-145) 06/05/23 16:02 Potassium 3.6 mmol/L (3.5-5.1) 06/05/23 16:02 Chloride 104 mmol/L (98-107) 06/05/23 16:02 Carbon Dioxide 28 mmol/L (22-29) 06/05/23 16:02 Anion Gap 14.6 (5-19) 06/05/23 16:02 BUN 8 mg/dL (6-20) 06/05/23 16:02 Creatinine 0.7 mg/dL (0.5-0.9) 06/05/23 16:02 GFR Calculation 98.9 mL/min (90-130) 06/05/23 16:02 Glucose 100 mg/dL (65-115) 06/05/23 16:02 Calculated Osmolality 294 mOsm/kg (285-295) 06/05/23 16:02 Calcium 9.9 mg/dL (8.5-10.5) 06/05/23 16:02 Total Bilirubin 1.0 mg/dL (0.15-1.2) 06/05/23 16:02 AST 27 U/L (0-32) 06/05/23 16:02 ALT 15 U/L (0-33) 06/05/23 16:02 Alkaline Phosphatase 63 U/L (35-105) 06/05/23 16:02 Total Protein 7.4 g/dL (6.6-8.7) 06/05/23 16:02 Albumin 5.2 g/dL (3.5-5.2) 06/05/23 16:02 Globulin 2.2 g/dL (1.3-4.6) 06/05/23 16:02 Lipase 33 U/L (13-60) 06/05/23 16:02 HCG, Qual Negative (Negative) 06/05/23 16:02 Urine Color Dark yellow (Yellow) 06/05/23 15:09 Urine Appearance Clear (CLEAR) 06/05/23 15:09 Urine pH 6.5 (5-7) 06/05/23 15:09 Ur Specific [place] 1.015 (1.005-1.030) 06/05/23 15:09 Urine Protein Neg (Negative) 06/05/23 15:09 Urine Glucose (UA) Norm (Normal) 06/05/23 15:09 Urine Ketones Negative (Negative) 06/05/23 15:09 Urine Blood Neg (Negative) 06/05/23 15:09 Urine Nitrate Negative (Negative) 06/05/23 15:09 Urine Bilirubin Neg (Negative) 06/05/23 15:09 Urine Urobilinogen Norm mg/dL (Negative) 06/05/23 15:09 Ur Leukocyte Esterase Negative (Negative) 06/05/23 15:09 All radiology interpretation(s) finalized by discharge Discharge Plan Discharge Patient Disposition: Home Clinical Impression: Abdominal pain Condition: Stable Prescriptions: New dicyclomine 10 mg capsule 10 mg PO TID Qty: 14 0RF No Action Classic 28 mg iron- 800 mcg tablet 1 tab PO DAILY Qty: 30 8RF cyclobenzaprine 10 mg tablet 10 mg PO BID dextroamphetamine-amphetamine 10 mg tablet 10 mg PO BID ondansetron 8 mg tablet,disintegrating 8 mg PO Q6H PRN (Reason: Nausea And Vomiting) Synthroid 25 mcg tablet 25 mcg PO DAILY pantoprazole 40 mg tablet,delayed release (DR/EC) 40 mg PO DAILY lorazepam 1 mg tablet 1 mg PO BID bupropion HCl 150 mg tablet extended release 24 hr 150 mg PO DAILY Discharge Orders: Discharge ED (Routine); Ordered 06/05/23 Ordered By: Sun Grant Discharge Diet: Advance as tolerated Discharge Activity: Resume usual activity Patient Instructions: Abdominal Pain (ED) Activity Restrictions/Additional Instructions: Lab work today shows no signs of infection. Your electrolytes are within normal limits at this time as well as your kidney function. The CT examination of your abdomen today revealed no signs of any acute enlargement in your liver or other acute concerns for your worsening abdominal pains. I am providing you a prescription for dicyclomine. We did send it over to [facility] as this prescription should be less than $20 there. I have also placed the GI referral on your behalf to see if further evaluation can be done while you are here in town visiting. Continue taking your prescription medications as recommended by your doctor back home. Sign Out Sign Out Data: Patient Sign Out occurred on 06/05/23 at 17:06. Patient's care was discussed, and care was transferred from GEOVANNI Hernandez to GEOVANNI Monk. Coding Level of Care Code ED Source Inspector for Liss Rodriguez
[2023-06-05 15:15] LABS: Add Urine Microscopic? NO; Charge for UA Resulting for Rev
[2023-06-05 15:21] LABS: Basophils % 0.6 %; Eosinophils % 0.6 %; Hematocrit 46.9 % (36-47); Lymphocytes # 1.3 10^3/uL (0.8-4.8); Lymphocytes % 24.6 %; Mean Corpuscular HGB Conc 32.8 g/dL (30-55); Mean Corpuscular Hemoglobin 29.6 pg (27-33); Mean Corpuscular Volume 90.2 fl (85-98); Mean Platelet Volume 10.4 fL (7.4-10.4); Monocytes # 0.4 10^3/uL (0.2-0.9); Monocytes % 6.7 %; Neutrophils # 3.53 10^3/uL (1.8-7.7); Neutrophils % 67.3 %; Nucleated Red Blood Cells % 0 %; Platelet Count 315 10^3/cmm (157-399); Red Cell Distribution Width 12.5 % (12.1-15.1); White Blood Count 5.24 10^3/uL (3.29-11.43)
[2023-06-05] MEDS: sodium chloride 0.9% 1,000 ML 999 ML IV (15:38)
[2023-06-05 15:40] LABS: Bilirubin Urine Neg (Negative); Blood Urine Neg (Negative); Glucose Urine UA Norm (Normal); Ketones Urine Negative (Negative); Leukocyte Esterase Urine Negative (Negative); Nitrate Urine Negative (Negative); Protein Urine Neg (Negative); Specific Gravity, Urine 1.015 (1.005-1.030); Urine Appearance Clear (CLEAR); Urine Color Dark Yellow (Yellow); Urobilinogen Urine Norm (Negative); pH Urine 6.5 (5-7)
[2023-06-05 15:41] VITALS: BP 117/74; RESP 94; O2SAT 100
[2023-06-05] MEDS: ondansetron 2 mg/ML SDV 2 mL 4 MG IVP (16:19)
[2023-06-05 16:51] LABS: HCG, Serum Qual Negative (Negative)
[2023-06-05] MEDS: acetaminophen 500 mg Tablet PO (16:53)
[2023-06-05 16:59] LABS: Alanine Aminotransferase 15 U/L (0-33); Albumin Level 5.2 g/dL (3.5-5.2); Alkaline Phosphatase 63 U/L (35-105); Anion Gap 14.6 (5-19); Aspartate Amino Transferase 27 U/L (0-32); Blood Urea Nitrogen 8 mg/dL (6-20); Calcium 9.9 mg/dL (8.5-10.5); Carbon Dioxide 28 mmol/L (22-29); Chloride 104 mmol/L (98-107); Globulin 2.2 g/dL (1.3-4.6); Glomerular Filtration Rate 98.9 mL/min (90-130); Glucose 100 mg/dL (65-115); Lipase 33 U/L (13-60); Osmolality Calculated 294 mOsm/kg (285-295); Potassium 3.6 mmol/L (3.5-5.1); Sodium 143 mmol/L (136-145); Total Protein 7.4 g/dL (6.6-8.7)
[2023-06-05 17:08] VITALS: BP 111/81; PULSE 92; O2SAT 97
[2023-06-05] MEDS: iohexol 350 mg/mL 500 mL Btl (per mL) IV (17:14)
[2023-06-05 18:32] VITALS: BP 111/80; PULSE 97; O2SAT 100
--- NOTE | 2023-06-05 19:05 | DCPLANNER ---
Message was sent to general surgery for GI referral sent on 06/05/23 at 0705. Clinic to contact patient.
== END 2023-06-05 19:06 | disposition home or self-care (01) ==
PROVIDERS: Emergency Medicine; Physician Assistant; Emergency Provider Physician Assistant
DX: R10.13 Epigastric pain (principal); R10.84 Generalized abdominal pain; Z87.891 Personal history of nicotine dependence
CPT/HCPCS: 36415; 74177; 80053; 81003; 83690; 84703; 85025; 96361; 96374; 99285; J2405; J7030; Q9967